=== PATIENT | male | born 1995 | race Caucasian/White ===

== ENCOUNTER 2021-12-02 01:27 | Inpatient (IN) | payer OTHER ==
[~2021-12-02] VITALS: Ht 177.8 cm; Wt 86.2 kg
--- NOTE | 2021-12-02 02:20 | NUR ---
PT TAKEN TO CT VIA [facility]
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
--- NOTE | 2021-12-02 02:36 | NUR ---
PT RETURNED TO ER BED [address]
--- NOTE | 2021-12-02 03:52 | NUR ---
DR. JOSSY BOOKER AT PT'S BEDSIDE FOR TOAN TO POSTERIOR SCALP
--- NOTE | 2021-12-02 03:55 | NUR ---
IMAGES SENT TO DR. MOORE FOR CONSULT
--- NOTE | 2021-12-02 04:12 | NUR ---
RAC #18G S/L BLOOD AND COVID ANTIGEN SWAB COLLECTED AND SENT TO LAB
--- NOTE | 2021-12-02 04:13 | NUR ---
NEURO CHECK DONE. A/OX4 LOC WNL. WILL CONTINUE TO MONITOR.
[2021-12-02 04:14] LABS: BASOPHILS # (AUTO) 0.1 K/uL (0.0-0.2); BASOPHILS % (AUTO) 0.5 % (0.0-2.0); EOSINOPHILS % (AUTO) 1.7 % (0.0-6.0); HEMATOCRIT 44 % (39-51); HEMOGLOBIN 14.8 g/dL (13.5-17.5); LYMPHOCYTES # (AUTO) 1.1 K/uL (0.8-4.8); LYMPHOCYTES % (AUTO) 11.2 % (20.0-44.0); MEAN CORPUSCULAR HGB CONC 34 g/dl (31.0-36.0); MEAN CORPUSCULAR VOLUME 84 fL (80-96); MONOCYTES # (AUTO) 0.6 K/uL (0.1-1.30); MONOCYTES % (AUTO) 5.9 % (2.0-12.0); NEUTROPHILS # (AUTO) 8.3 K/uL (1.8-8.9); NEUTROPHILS % (AUTO) 80.7 % (43.0-81.0); PLATELET COUNT (AUTO) 196 K/uL (150-450); RED BLOOD CELL COUNT(AUTO) 5.23 MIL/uL (4.5-6.0); WHITE BLOOD COUNT (AUTO) 10.3 K/uL (4.3-11.0)
--- NOTE | 2021-12-02 04:14 | NUR ---
DR. FENTON DO ON PHONE CALL WITH DR. MOORE NEUROLOGY.
[2021-12-02 04:21] LABS: CALCIUM, SERUM 8.9 mg/dL (8.5-10.1); CREATININE 1.1 mg/dL (0.6-1.3); POTASSIUM 3.5 mmol/L (3.5-5.1)
[2021-12-02] MEDS ORDERED: ACETAMINOPHEN 325 MG TABLET ONE (04:42)
--- NOTE | 2021-12-02 04:44 | NUR ---
PRN PAIN MEDS: PT C/O 3/10 JAW PAIN. ADMINISTERED TYLENOL 650MG PO ORDERED. WILL REASSESS PAIN IN 30 MINUTES.
[2021-12-02] MEDS ORDERED: ACETAMINOPHEN 325 MG TABLET PO ONE (05:00)
[2021-12-02] MEDS ORDERED: HYDR12.55 PO (05:25)
[2021-12-02] MEDS ORDERED: METO50TA16 PO (05:25)
--- NOTE | 2021-12-02 05:28 | NUR ---
ASSIGNED TO 112-2
--- NOTE | 2021-12-02 05:43 | NUR ---
REPORT GIVEN TO ELIAS ADAMS RN FOR PORTIA
--- NOTE | 2021-12-02 05:48 | NUR ---
NOTIFIED JAMES MACK FOR ADMITTING ORDERS VIA TEXT MESSAGE.
--- NOTE | 2021-12-02 06:16 | NUR ---
PT TRANSPORTED TO ROOM 112 ON [facility] PER ACLS IN STABLE CONDITION
[2021-12-02 06:31] VITALS: BP 125/61
--- NOTE | 2021-12-02 06:34 | NUR ---
TIER IN NOTE PT ARRIVED TO UNIT AT THIS TIME. A/O X4 AND ABLE TO MAKE NEEDS KNOWN. PT STABLE ON ROOM AIR. NO SOB OR S/S OF RESPIRATORY DISTRESS. BREATHING EVEN AND UNLABORED. ON EXTERNAL LACER AND TIER READING SR 63 BPM. IV ACCESS RAC 18 GAUGE SL, INTACT AND PATENT. VS: BP 125/61 HR 63 R 18 TEMP 99 O2 98% ON RA. NOTED WITH 4 TOAN TO R POSTERIOR HEAD. NO BLEEDING FROM HEAD WOUND AT THIS TIME. NO COMPLAINTS OF PAIN OR DISCOMFORT AT THIS TIME. MADE COMFORTABLE IN BED. ALL BELONGINGS ACCOUNTED FOR AND BELONGINGS LIST SIGNED. ORIENTED TO UNIT, STAFF, AND ROOM. SAFETY PRECAUTIONS IN PLACE. BED IN LOWEST LOCKED POSITION, HOB ELEVATED, SIDE RAILS UP X2, AND CALL LIGHT AND TABLE WITHIN REACH. ALL NEEDS MET AT THIS TIME AND WILL ENDORSE TO ONCOMING NURSE FOR PORTIA.
--- NOTE | 2021-12-02 07:00 | NUR ---
RN OPENING NOTE RECIEVED PATIENT REPORT FROM [facility]. PATIENT ASLEEP ON ROOM AIR WITH HEAD OF BED ELEVATED TO 40 DEGREES. BREATHING EVENLY AND UNLABORED. ATTACHED TO BAKERY HELPER READING NORMAL SINUS RHYTHM. SURGICAL TOAN NOTED ON RIGHT OCCIPITAL. IV ACCESS ON RIGHT ANTECUBITAL 18 GAUGE. SAFETY MEASURES IMPLEMENTED, CALL LIGHT WITHIN REACH, BED IN LOWEST LOCKED POSITION, SIDE RAILS UP TIMES 2. WILL CONTINUE PLAN OF CARE AND ANTICIPATE NEEDS.
[2021-12-02] MEDS ORDERED: ACETAMINOPHEN 325 MG TABLET PO PRN (07:30)
[2021-12-02] MEDS ORDERED: IV NS 0.9% 1,000 ML IV PRN (07:30)
[2021-12-02] MEDS ORDERED: ONDANSETRON HCL/PF 4 MG/2 ML VIAL IVP PRN (07:30)
[2021-12-02] MEDS ORDERED: ZOLPIDEM TARTRATE 5 MG TABLET PO PRN (07:30)
[2021-12-02] MEDS ORDERED: Z GUARD REMEDY 4 OZ OINT TP PRN (07:30)
[2021-12-02 08:00] VITALS: BP 117/61
[2021-12-02 12:00] VITALS: BP 124/69
[2021-12-02] MEDS: HYDROCODONE/APAP 5/325MG TABLET PO PRN ×2 (12:44→19:50)
[2021-12-02 16:00] VITALS: BP 114/60
--- NOTE | 2021-12-02 18:46 | NUR ---
RN CLOSING NOTE PATIENT ASLEEP ON ROOM AIR WITH HEAD OF BED ELEVATED TO 40 DEGREES. BREATHING EVENLY AND UNLABORED. ATTACHED TO PRESIDENT CELEBRITY ACQUISTION READING NORMAL SINUS RHYTHM. SURGICAL TOAN NOTED ON RIGHT OCCIPITAL. IV ACCESS ON RIGHT ANTECUBITAL 18 GAUGE. SAFETY MEASURES IMPLEMENTED, CALL LIGHT WITHIN REACH, BED IN LOWEST LOCKED POSITION, SIDE RAILS UP TIMES 2. WILL ENDORSE TO [facility] FOR CONTINUATION OF CARE.
--- NOTE | 2021-12-02 19:10 | NUR ---
RN NOTES: RECEIVED AWAKE ON BED. ON ROOM AIR, KEPT ON SEMI FOWLERS POSITION, ASPIRATION PRECAUTION OBSERVED,ON ROOM AIR, TELE MONITOR SR-65,SURGICAL SITE: RIGHT POSTERIOR HEAD 4 SURGICAL TOAN,ORIENTED TO UNIT AND STAFF, MONITORED FOR SIGN OF BLEEDING AND INFECTION, RAC G#18, WITH IVF OF NS AT 75 ML/HR ONGOING.
--- NOTE | 2021-12-02 19:50 | NUR ---
RN NOTES: VERBALIZED HE HAVE HEADACHE, AND HE HAD GENERALIZED PAIN, HE ASKED IF HE CAN HAVE HIS PAIN MEDICATION, GIVEN AFTER NON PHARMACOLOGIC INTERVENTION IS INEFFECTIVE.
[2021-12-02 20:00] VITALS: BP 111/64
--- NOTE | 2021-12-02 22:26 | NUR ---
RN NOTES: ABLE TO SLEEP AND REST, CALLS AND NEEDS ATTENDED, KEPT CALL LIGHT WITHIN EASY REACH.
[2021-12-03] VITALS: BP 114/67
--- NOTE | 2021-12-03 00:44 | NUR ---
RN NOTES: -ASSISTED TO THE BATHROOM, AFTER RETURNING TO HIS BED, HE ASKED IF HE GOT ANY MEDICATION FOR SLEEP, HE SAID, "I WANT TO SLEEP", HE HAS PRN, GIVEN PER PATIENT REQUEST. KEPT COMFORTABLE IN BED.
--- NOTE | 2021-12-03 00:49 | NUR ---
RN NOTES: IVF CONSUMED, REPLACED WITH NEW BAG NS AT 75 ML/HR, UNABLE TO SCAN, MANUALLY ENTERED THE BARCODE.
--- NOTE | 2021-12-03 01:51 | NUR ---
RN NOTES: ABLE TO SLEEP AND REST NEEDS ATTENDED.
[2021-12-03 04:00] VITALS: BP 108/53
[2021-12-03 07:16] LABS: CALCIUM, SERUM 8.6 mg/dL (8.5-10.1); CREATININE 1.1 mg/dL (0.6-1.3); MAGNESIUM 1.9 mg/dL (1.8-2.4); PHOSPHORUS 3.4 mg/dL (2.5-4.9); POTASSIUM 3.6 mmol/L (3.5-5.1)
[2021-12-03 07:26] LABS: BASOPHILS # (AUTO) 0.1 K/uL (0.0-0.2); BASOPHILS % (AUTO) 0.7 % (0.0-2.0); EOSINOPHILS % (AUTO) 3.2 % (0.0-6.0); HEMATOCRIT 42 % (39-51); HEMOGLOBIN 13.8 g/dL (13.5-17.5); LYMPHOCYTES # (AUTO) 1.6 K/uL (0.8-4.8); LYMPHOCYTES % (AUTO) 21.7 % (20.0-44.0); MEAN CORPUSCULAR HGB CONC 33 g/dl (31.0-36.0); MEAN CORPUSCULAR VOLUME 84 fL (80-96); MONOCYTES # (AUTO) 0.7 K/uL (0.1-1.30); MONOCYTES % (AUTO) 9.7 % (2.0-12.0); NEUTROPHILS # (AUTO) 4.8 K/uL (1.8-8.9); NEUTROPHILS % (AUTO) 64.7 % (43.0-81.0); PLATELET COUNT (AUTO) 177 K/uL (150-450); RED BLOOD CELL COUNT(AUTO) 4.92 MIL/uL (4.5-6.0); WHITE BLOOD COUNT (AUTO) 7.4 K/uL (4.3-11.0)
--- NOTE | 2021-12-03 07:34 | NUR ---
RN OPENING NOTE RECIEVED PATIENT REPORT FROM [facility]. PATIENT ASLEEP ON ROOM AIR WITH HEAD OF BED ELEVATED TO 40 DEGREES. BREATHING EVENLY AND UNLABORED. ATTACHED TO MEDICAL OFFICE TECHNOLOGIST READING NORMAL SINUS RHYTHM. SURGICAL TOAN NOTED ON RIGHT OCCIPITAL. IV ACCESS ON RIGHT ANTECUBITAL 18 GAUGE. SAFETY MEASURES IMPLEMENTED, CALL LIGHT WITHIN REACH, BED IN LOWEST LOCKED POSITION, SIDE RAILS UP TIMES 2. WILL CONTINUE PLAN OF CARE AND ANTICIPATE NEEDS.
--- NOTE | 2021-12-03 07:34 | NUR ---
RN NOTES; AWAKE IN BETWEEN ASSISTED TO THE BATHROOM, A/OX4, ON ROOM AIR, SB-54, WITH T WAVES,IVF OF NS AT 75 ML/HR ONGOING, KEPT ON CLOSE WATCH, FALL AND SAFETY PRECAUTION OBSERVED, KEPT CALL LIGHT WITHIN EASY REACH.ENDORSED FOR CONTINUITY OF CARE.
[2021-12-03 08:00] VITALS: BP 116/61
[2021-12-03 12:00] VITALS: BP 125/65
[2021-12-03] MEDS ORDERED: HYDR-3972 PO (12:01)
[2021-12-03] MEDS: HYDROCODONE/APAP 5/325MG TABLET PO PRN (12:20)
--- NOTE | 2021-12-03 13:23 | NUR ---
RN NOTE PATIENT IS AT STABLE CONDITION , DISCHARGE INSTRUCTIONS PROVIDED IN VERBAL AND IN WRITTEN . PATIENT VERBALIZED UNDERSTANDING.PATIENT DISCHARGED FROM [facility]
== END 2021-12-03 13:23 | disposition home or self-care (01) | DRG 55 ==
LOC: ER 01:35 → TELE1 05:58
PROVIDERS: ADMIT Nurse Practitioner Acute Care; ATTEND Nurse Practitioner Acute Care
DX: S06.6X9A Traumatic subarachnoid hemorrhage with loss of consciousness of unspecified duration, initial encounter (principal); S01.01XA Laceration without foreign body of scalp, initial encounter; W19.XXXA Unspecified fall, initial encounter; Y92.89 Other specified places as the place of occurrence of the external cause; Z79.899 Other long term (current) drug therapy
CPT/HCPCS: 36415; 70450-TC; 70486-TC; 72125-TC; 80048-TC; 83735-TC; 84100-TC; 85025-TC; C9803; G0378; J7030

== ENCOUNTER 2021-12-11 15:13 | Emergency (ER) | payer OTHER ==
[~2021-12-11] VITALS: Ht 177.8 cm; Wt 86.2 kg
[~2021-12-11 15:13] MED LIST: HYDR-3972 PO
[2021-12-11 15:57] VITALS: BP 127/84
--- NOTE | 2021-12-11 16:16 | NUR ---
4 yanique removed. tolerated well. d/c in stable condition.
== END 2021-12-11 16:18 | disposition home or self-care (01) ==
LOC: ER 15:14
DX: Z48.02 Encounter for removal of sutures (principal); Z60.2 Problems related to living alone; Z79.899 Other long term (current) drug therapy